=== PATIENT | male | born 1965 | race Caucasian/White ===

== ENCOUNTER 2023-04-01 08:52 | Day surgery (SDC) | payer OTHER, SELFPAY ==
[2023-04-01 09:16] VITALS: BP 163/88; PULSE 98; RESP 16; TEMP 37.7; O2SAT 98; BMI 34.5
[2023-04-01] MEDS: LACTATED RINGERS 1000 ML 1,000 ML 100 ML IV (09:45)
[2023-04-01] MEDS: SODIUM CHLORIDE 0.9 % (FLUSH) 10 ML SYRINGE IVF (09:45)
--- NOTE | 2023-04-01 10:13 | W.ANESCHARGE ---
Anesthesia Charges Start Date/Time Anesthesia Start Date: 04/01/23 Stop Date/Time Anesthesia Stop Date: 04/01/23
== END 2023-04-01 23:00 | disposition home or self-care (01) ==
LOC: OR 08:55
PROVIDERS: Visit Provider Surgery
DX: Z53.8 Procedure and treatment not carried out for other reasons (principal)
CPT/HCPCS: J0330; J1100; J1885; J2405; J2704; J3010; J7120

== ENCOUNTER 2025-04-02 20:58 | Outpatient (CLI) | payer OTHER, SELFPAY ==
--- OUTSIDE RECORDS SUMMARY | 2025-04-03 01:25 | XMS_ITS | Clinical Summary ---
Author Organization [facility] Address [address] , [address] [place] [address] Phone Care Team Providers Care Needle Grader Name Role Phone Manjeet Borrero Unavailable Unavailable Conditions or Problems Problem Name Problem Code Onset Date Status Entry Date Provider Comment Standard Description Annotate Hypervitamino sis B6 527305637 (SNOMED CT) 11/30 Active 11/30 Conrado Gomez MD Hypervitaminosis B6 Peripheral polyneuropath y [id number] (SNOMED CT) 11/04 Active 11/04 Conrado Gomez MD Peripheral nerve disease Numbness tingling bilat legs below knees [id number] (SNOMED CT) 11/04 Active 11/04 Conrado Gomez MD Paresthesia of lower extremity Medications Medication Instructions Start Date Stop Date Generic Name NDC Provider OXYCODONE HCL 15 MG TABS TAKE ONE TABLET BY MOUTH EVERY SIX HOURS NEEDED FOR PAIN oxycodone [id number] Conrado Gomez MD ZOLPIDEM TARTRATE 5 MG TABS TAKE ONE TABLET BY MOUTH ONE TIME DAILY AT BEDTIME NEEDED zolpidem 34996839010 Conrado Gomez MD CYCLOBENZAPRINE HCL 10 MG TABS TAKE ONE TABLET BY MOUTH THREE TIMES DAILY NEEDED FOR MUSCLE SPASM cyclobenzaprine [id number] Conrado Gomez MD LISINOPRIL 20 MG TABS TAKE ONE TABLET BY MOUTH TWICE DAILY lisinopril [id number] Conrado Gomez MD AMLODIPINE BESYLATE 10 MG TABS TAKE ONE TABLET BY MOUTH ONE TIME DAILY amlodipine [id number] Conrado Gomez MD MELOXICAM 15 MG TABS TAKE ONE TABLET BY MOUTH ONE TIME DAILY meloxicam 76071818892 Conrado Gomez MD ATORVASTATIN CALCIUM 20 MG TABS TAKE ONE TABLET BY MOUTH ONE TIME DAILY atorvastatin [id number] Conrado Gomez MD Medications Administered No information available. Allergies, Adverse Reactions, Alerts Allergy Name Reaction Description Start Date Severity Statu s Provider NO KNOWN DRUG ALLERGIES Mild Activ e Conrado Gomez MD Results Date Name Value Unit Range Flag Description Internal Other: Observation data from Authorization.pdf HIECONSENT Y Consent To Release information to the Health Information Exchange (VidientE) Office Visit: Office Visit n umb of toes scans - no records - [facility] ORALTOBACUSE Chews tobacco To bacco smoking status Office Visit: Office Visit f lup pt sched fax MEDS REVIEW Done Documenta tion of current medications (procedure) Plan of Care Type Date Detail Appointment 03:00 PM Samaria Turpin PA-C, [address], [address], [place], [address], Pending order Follow up YOJANA Pending order Follow up YOJANA Pending order Patient Instruct ions Pending order Follow up YOJANA in clinic or telemedicine Pending order Follow up YOJANA in clinic or telemedicine Pending order Hemoglobin A1C Pending order Immunofixation S delio Pending order Vitamin B6 (Pyri doxine) - fasting after midnight Pending order Patient Instruct ions Procedures Code Procedure Name Date Entry Date [facility]-[id number] Documentation of current medicatio ns ORDERS Patient Instructions [facility]-[id number] Documentation of current medicatio ns ORDERS Patient Instructions ORDERS Hemoglobin A1C ORDERS Immunofixation Serum ORDERS Vitamin B6 (Pyridoxi ne) - fasting after midnight Vital Signs No information available. Immunizations No information available. Advance Directives No information available.
--- OUTSIDE RECORDS SUMMARY | 2025-04-03 01:26 | XMS_ITS | Clinical Summary ---
Author Organization [facility] Address [address] [place] [address] Care Team Providers Care Captain Waiter Name Role Phone Jose Martin Marie MD Primary Care Provider Alyssia Merino RD Unavailable [phone] Crys Perez POLISHING MACHINE OPERATOR Unavailable [phone] Allergies No known active allergies Medications diazePAM (VALIUM) 5 mg tablet Take 10 mg by mouth one time if needed. 022 Active fluticasone (50 mcg per actuation) nasal solution (FLONASE)Indications:A llergy, sequela Inhale 2 Sprays to both nostrils once daily. 48 g 2 024 Active polyethylene glycoL (Miralax) 17 gram/scoop powderIndications:Cons tipation, acute Mix 1 scoop (17 g) in liquid then take by mouth once daily. 500 g 3 024 Active oxyCODONE (ROXICODONE) 15 mg immediate release tabletIndications:Lumb ar disc herniation,Chronic bilateral low back pain with sciatica, sciatica laterality unspecified Take 1 Tablet (15 mg) by mouth every 6 hours if needed for Pain. 120 Tablet 024 Active levalbuterol (XOPENEX HFA) 45 mcg/actuation inhalerIndications:Whe ezing Inhale 1-2 Puffs by mouth every 4 hours if needed for Wheezing. 15 g 025 Active atorvastatin (LIPITOR) 20 mg tabletIndications:Pure hypercholesterolemia Take 1 Tablet (20 mg) by mouth once daily. 90 Tablet 3 025 Active amLODIPine (NORVASC) 10 mg tabletIndications:Hype rtension, unspecified type Take 1 Tablet (10 mg) by mouth once daily. 90 Tablet 3 025 Active lisinopriL (PRINIVIL; ZESTRIL) 20 mg tabletIndications:Hype rtension, unspecified type Take 1 Tablet (20 mg) by mouth two times daily. 180 Tablet 3 025 Active traZODone (DESYREL) 50 mg tabletIndications:Slee p disturbance Take 1 Tablet (50 mg) by mouth at bedtime. 90 Tablet 1 025 Active oxyCODONE 15 mg tabletIndications:Lumb ar disc herniation,Chronic bilateral low back pain with sciatica, sciatica laterality unspecified,Controlled substance agreement signed Take 1 Tablet (15 mg) by mouth every 6 hours if needed for Pain. 120 Tablet 025 Active oxyCODONE 15 mg tabletIndications:Lumb ar disc herniation,Chronic bilateral low back pain with sciatica, sciatica laterality unspecified,Controlled substance agreement signed Take 1 Tablet (15 mg) by mouth every 6 hours if needed for Pain. 120 Tablet 025 04/28 Active oxyCODONE 15 mg tabletIndications:Lumb ar disc herniation,Chronic bilateral low back pain with sciatica, sciatica laterality unspecified,Controlled substance agreement signed Take 1 Tablet (15 mg) by mouth every 6 hours if needed for Pain. 120 Tablet 025 Active buPROPion 300 mg Extended-Release tabletIndications:Clas s 1 obesity with body mass index (BMI) of 33.0 to 33.9 in adult, unspecified obesity type, unspecified whether serious comorbidity present Take 1 Tablet (300 mg) by mouth once daily. Take after completing 14 days of 150mg dose. 90 Tablet 025 Active metFORMIN 500 mg Extended-Release tabletIndications:Clas s 1 obesity with body mass index (BMI) of 34.0 to 34.9 in adult, unspecified obesity type, unspecified whether serious comorbidity present,Insulin resistance,Prediabetes TAKE TWO TABLET BY MOUTH DAILY WITH MEALS 60 Tablet 1 025 Active metFORMIN 500 mg Extended-Release tabletIndications:Clas s 1 obesity with body mass index (BMI) of 34.0 to 34.9 in adult, unspecified obesity type, unspecified whether serious comorbidity present,Insulin resistance,Prediabetes TAKE TWO TABLET BY MOUTH DAILY WITH MEALS 60 Tablet 025 03/28 Discontinued Active Problems Problem Noted Date Diagnosed Date Sleep disturbance 11/23/2024 Lumbar disc herniation 11/23/2024 Hypertensive disease 11/23/2024 Peripheral sensory neuropathy 11/23/2024 Class 2 severe obesity with body mass index (BMI) of 35 to 39.9 with serious comorbidity 11/23/2024 Trigger ring finger of left hand 09/26/2024 Trigger finger of left thumb 06/30/2024 Right lateral epicondylitis 09/23/2023 S/P right thumb trigger finger release Trigger finger of right thumb 03/03/2023 S/P right carpal tunnel release 02/12/2023 S/P right cubital tunnel release 02/12/2023 Trigger thumb of right hand 02/12/2023 Abnormal urine 12/24/2022 Overview (12/24/2022): Abnormal Compliance urine test on 12/11/2022 due to use of otc Gummies with THC. Carpal tunnel syndrome of left wrist 10/16/2022 Bilateral hand pain 10/16/2022 Cubital tunnel syndrome, left 10/16/2022 Tachycardia 01/03/2019 Lipoma of back 01/03/2019 Essential hypertension 05/20/2018 Chronic bilateral low back pain with sciatica BMI 31.0-31.9,adult 04/17/2017 Controlled substance agreement signed and rox jamil 12/26/09 07/25/2014 Overview (11/02/2017): 11/02/17: ATV MECHANIC Query Ran and patient has filled controlled substances by 3 Cassie Wade providers and one other provider for Valium. Has used 2 different pharmacies. Query given to provider for review. Vivian Tubbs LPN ...........................11/02/2017 12:42 PM I have queried the [place] Prescription Monitoring Program 04/16/2017 for this patient for the preceding 6 months, reviewed the report provided by my proxy delegate. I have not identified any concerns. Holly Kim CMA (AAID) 04/16/2017...10:10 AM 05/11/16: ATV MECHANIC Query Ran and patient filling only meds from Jose Martin Marie MD but has used 2 different pharmacies. Vivian Tubbs LPN ...........................05/11/2016 4:30 PM History of kidney stones 09/09/2013 Family history of premature coronary artery dise ase 03/18/2012 Issue of repeat prescriptions 10/21/2010 Long-term current use of opiate analgesic 2008 Tobacco use disorder 10/16/2008 LOW BACK PAIN 08/16/2001 Overview (05/27/2012): CONTROLLED SUBSTANCE AGREEMENT 12/26/2009 120 tabs /month. Med adjusted 05/27/2012 HYPERCHOLESTEROLEMIA, PURE Resolved Problems Problem Noted Date Diagnosed Date Resolved Date Carpal tunnel syndrome of right wrist 10/16/2022 02/12/2023 Cubital tunnel syndrome, right 10/16/2022 02/12/2023 Routine adult health maintenance 09/14/2017 04/29/2018 Overview (09/14/2017): Colonoscopy 09/2017 hyperplastic polyp repeat in 10 years HTN (hypertension) 04/08/2016 08 8 Unspecified essential hypertension 06/08/2007 04/08/2016 ABNORMAL FINDINGS, ELEVATED BP W/O HTN 02/01/2003 04/29/2018 WARTS, VIRAL NOS 03/18/2012 ABNORMAL RESULT, FUNCTION STUDY, LIVER 03/18/2012 Encounters Date Type Department Care Team Description 03/26/2025 Refill [facility] [address] [place] [address] Crys Perez NP Refill Request (Metformin) 03/07/2025 1:00 PM CDT Office Visit [facility] [address] [place] [address] Keshawn Wade MD Sleep Consult 03/07/2025 Travel 02/28/2025 10:00 AM CDT Telemedicine [facility] [address] [place] [address] Crys Perez NP Weight ([facility] ) 02/28/2025 Travel 02/25/2025 Refill [facility] [address] [place] [address] Crys Perez NP Refill Request (Metformin) 02/14/2025 Refill [facility] [address] [place] [address] Crys Perez NP Refill Request (Bupropion) 02/08/2025 3:00 PM CDT Telemedicine [facility] [address] [place] [address] Medical Nutrition Therapy ([facility] telehealth) 02/03/2025 Travel 01/23/2025 Refill [facility] [address] [place] [address] Crys Perez NP Refill Request (Metformin) 01/16/2025 Refill [facility] [address] [place] [address] Crys Perez NP Refill Request (Bupropion) from Last 3 Months Immunizations Immunization Administration Dates Next Due Td (Age >=7 Years) 01/21/2003 Tdap 04/06/2014 Zoster (Shingrix-RZV, recombinant) 05/01/2022, Family History Medical History Relation Name Comments Good Health Father Heart Disease Mother CABG at 30, ca rotid dis. Relation Name Status Comments Father emphysema Mother Social History Tobacco Use Types Packs/Day Years Used Date Smoking Tobacco: Never Smokeless Tobacco: Current Chew Tobacco Cessation:Ready to Q uit: No; Counseling Given: Not Answered Comments:1 tin per day Alcohol Use Standard Drinks/Week Comments Yes 6 (1 standard drink = 0.6 oz pur e alcohol) less PHQ-2 Answer Date Recorded PHQ-2 TOTAL SCORE 0 11/22/2024 Social Connections Answer Date Recorded Do you often feel lonely or isolated from those around you? 0 10/27/2024 Financial Resource Strain Answer Date R ecorded Difficulty of Paying Living Expenses 3 10/27/2024 Difficulty of Paying Living Expenses Not on file 10/27/2024 Food Insecurity Answer Date Recorded Do you worry your food will run out before you are able to buy more? 1 10/27/2024 Transportation Needs Answer Date Record ed Does lack of transportation keep you from medica l appointments? 1 10/27/2024 Does lack of transportation keep you from work, meetings or getting things that you need? 1 10/27/2024 Housing Stability Answer Date Recorded What is your housing situation today? 1 10/27/2024 Utilities Answer Date Recorded Do you have trouble paying f or utilities (for example, heat, electricity, water, phone)? 1 10/27/2024 Comments Unknown Sex and Gender Information Value Date Recorded Sex Assigned at Female 11/23/2024 11:06 AM CHAR FILTER OPERATOR HELPER Legal Sex Male 5:26 AM CHAR FILTER OPERATOR HELPER Gender Identity Not on file Sexual Orientation Not on file Occupation Industry Job Start Date Job End Date [employer] Not on file Not on file Not on file Obstetrics History Last Filed Vital Signs Vital Sign Reading Time Taken Comments Blood Pressure 95/63 03/07/2025 12:57 PM CDT Pulse 80 03/07/2025 12:57 PM CDT Temperature 36.6 C (97.9 F) 10/27/2024 11:11 AM CHAR FILTER OPERATOR HELPER Respiratory Rate 16 10/12/2024 8:15 AM CHAR FILTER OPERATOR HELPER Oxygen Saturation 96% 03/07/2025 12:57 PM CDT Inhaled Oxygen Concentration - - Weight 96.8 kg (213 lb 6.4 oz) 03/07/2025 12:57 PM CDT Height 167.6 cm (5' 5.98) 03/07/2025 12:57 PM C DT Body Mass Index 34.46 03/07/2025 12:57 PM CDT Plan of Treatment Upcoming Encounters Date Type Department Care Team (Late st Contact Info) Description 05/03/2025 10:00 AM CDT Telemedicine [facility] [address] [place] [address] Crys Perez, JACINTA [address] [place] [address] 05/09/2025 4:00 PM CDT Telemedicine [facility] [address] [place] [phone] Alyssia Merino, RD [address] [place] [address] 06/05/2025 4:00 PM CDT Office Visit [facility] [address] [place] [address] Keshawn Wade MD [address] [place] [address] Health Maintenance Due Date Last Done Comments HIV for age 15-65 1982 Hepatitis B series for 19+ ( 1 of 3 - 19+ 3-dose series) 1986 Pap test for age 21-65 1988 Mammogram for age 45-75 2012 Pneumococcal series for age 50+ (1 of 1 - PCV) 2017 Tetanus booster 04/06/2024 04/06/2014, 01/21/2003 COVID-19 vaccine series ( - season) 2024 Influenza Vaccine (Season Ended) 2025 Depression screening for age 12+ 11/22/2025 11/22/2024, 09/14/2023, 01/09/2022, Additional history exists BMI (ht and wt on same day) for age 18+ 03/07/2026 03/07/2025, 02/28/2025, 02/08/2025, Additional history exists Colonoscopy through age 75 09/10/2027 09/10/2017, Lipids for age 45-75 10/23/2029 10/23/2024, 09/10/2023, 01/21/2022, Additional history exists Tdap Completed 04/06/2014 Hepatitis C screening for ag e 18-79 Completed 04/27/2017 Zoster (shingles) series for age 50+ Completed 05/01/2022, 01/09/2022 Procedures Procedure Name Priority Date/Time Associated Diagnosis Comments LIPID PANEL W REFLEX MEASURED LDL Routine 10/23/2024 10:20 AM CHAR FILTER OPERATOR HELPER Class 1 obesity with body mass index (BMI) of 34.0 to 34.9 in adult, unspecified obesity type, unspecified whether serious comorbidity present Screening for endocrine, nutritional, metabolic and immunity disorder COLONOSCOPY 09/10/2017 10:37 AM CHAR FILTER OPERATOR HELPER ANTI HCV Routine 04/27/2017 8:01 AM CDT Elevated liver enzymes from Last 3 Months or Most Recently Relevant to Health Maintenance Results * (ABNORMAL) LIPID PANEL W REFLEX MEASURED LDL (10/23/2024 10:20 AM CHAR FILTER OPERATOR HELPER) CHOLESTEROL, TOTAL 168 <200 mg/dL [facility] HDL CHOLESTEROL 42 > OR = 40 mg/dL [facility] TRIGLYCERIDES 143 <150 mg/dL [facility] LDL-CHOLESTEROL 102(H) mg/dL (calc) [facility] Comment: Reference range: <100 Desirable range <100 mg/dL for primary prevention; <70 mg/dL for patients with CHD or diabetic patients with > or = 2 CHD risk factors. LDL-C is now calculated using the Trevon-Clara calculation, which is a validated novel method providing better accuracy than the Friedewald equation in the estimation of LDL-C. Trevon MCKEON et al. DARYL. 2013;310(19): 3812-0610 (http://education.[employer]/faq/OIU780) CHOL/HDLC RATIO 4.0 <5.0 (calc) [facility] NON HDL CHOLESTEROL 126 <130 mg/dL (calc) [facility] Comment: For patients with diabetes plus 1 major ASCVD risk factor, treating to a non-HDL-C goal of <100 mg/dL (LDL-C of <70 mg/dL) is considered a therapeutic option. Blood BLOOD SPECIMEN / Unknown 10/23/2024 10:20 AM CHAR FILTER OPERATOR HELPER 10/23/2024 10:21 AM CHAR FILTER OPERATOR HELPER Crys Perez NP CHEMISTRY Final Result [facility] [address] [place] [address], [facility] [address] [place] [address] * COLONOSCOPY (09/10/2017 10:37 AM CHAR FILTER OPERATOR HELPER) 09/10/2017 10:3 7 AM CHAR FILTER OPERATOR HELPER Narrative Transcriptions Trevon Stallings MD - 09/10/2017 11:36 AM CST Patient Name: Myles Naqvi Procedure Date: 09/10/2017 Gender: Male Date of : 1965 Admit Type: Outpatient Procedure: Colonoscopy Proceduralist: Trevon Stallings MD , Oxana Fernandez (Nurse) Indications/Pre-Op Diagnosis: Screening for colorectal malignant neoplasm, This is the patient's first colonoscopy Medications: Fentanyl 100 micrograms IV, Midazolam 4 mgIV, The level of sedation administered wasmoderate Procedure Description: The patient had risks, benefits and alternatives explained to andgave informed consent. The patient had a stable cardiopulmonary status and judged an adequate candidate for conscious sedation. The [id number] was passed through the anus and advanced tothe cecum, identified by appendiceal orifice and ileocecal valve. The colonoscopy was performed without difficulty. The patient toleratedthe procedure well. The quality of the bowel preparation was good. The ileocecal valve, appendiceal orifice, and rectum were photographed. Complications: No immediate complications. Estimated Blood Loss & Specimen: Estimated blood loss: none. Specimen collected - Yes and sent to Laboratory Findings: The perianal and digital rectal examinations were normal. A 2 mm polyp was found in the rectum. The polyp was sessile. Thepolyp was removed with a cold biopsy forceps. Resection and retrieval were complete. The entire examined colon appeared normal on direct and retroflexion views. Impressions/Post-Op Diagnosis: - One 2 mm polyp in the rectum, removed with a cold biopsy forceps. Resected and retrieved. - The entire examined colon is normal on direct and retroflexionviews. Recommendation: - Patient has a contact number available for emergencies. The signsand symptoms of potential delayed complications were discussed with the patient. Return to normal activities tomorrow. Written discharge instructions were provided to the patient. - Resume previous diet. - Continue present medications. - Await pathology results. - Repeat colonoscopy is recommended. The colonoscopy date will be determined after pathology results from today's exam become available for review. Moderate Sedation: Moderate (conscious) sedation was administered by the endoscopy nurse and supervised by the endoscopist. The following parameters were monitored: oxygen saturation, heart rate, respiratory rate, blood pressure, adequacy of pulmonary ventilation and reponse to care. [facility] and nursing notes for moderate sedation details. Total physician intraservice time was 15 minutes. Trevon Stallings MD 09/10/2017 11:36:32 AM This report has been signed electronically. Note Initiated On: 09/10/2017 10:37 AM Procedure Code(s): --- Professional --- 18155, Colonoscopy, flexible; with biopsy, single or multiple Diagnosis Code(s): --- Professional --- Z12.11, Encounter for screening formalignant neoplasm of colon K62.1, Rectal polyp CPT copyright 2016 [employer]. All rights reserved. The codes documented in this report are preliminary and upon water softener service supervisor reviewmay be revised to meet current compliance requirements. Scope In: 11:16:56 AM Scope Withdrawal Time 0 hours 10 minutes 44 seconds Scope Out: 11:30:35 AM us Trevon Stallings MD PROCEDURE ORD Final Res ult * ANTI HCV (04/27/2017 8:01 AM CDT) HEPATITIS C ANTIBODY Non-Reacti ve Non-Reacti ve 04/30/2017 10:17 AM CDT [facility] Blood BLOOD SPECIMEN / Unknown Venipuncture / Unknown 04/27/2017 8:01 AM CDT 04/27/2017 8:01 AM CDT Narrative [facility] - 04/30/2017 10:17 AM CDT Antibodies to HCV not detected; does not exclude the possibility of exposure to HCV. us Jose Martin Marie MD SEND OUTS Final R esult [facility] [address] [place] [address], [place] from Last 3 Months or Most Recently Relevant to Health Maintenance Insurance [place] [id number] Advance Directives * Full Code (Latest Code Status on File) Date Activated Date Inactivated Comments 10/12/2024 6:28 AM 10/12/2024 10:36 AM Question Answer Comments Code Status Discussion: Unable to Assess Preferences, Provider to review later * Full Code Date Activated Date Inactivated Comments 05/19/2023 6:31 AM 05/19/2023 10:55 AM Question Answer Comments Code Status Discussion: Unable to Assess Preferences, Provider to review later * Full Code Date Activated Date Inactivated Comments 03/31/2023 9:13 AM 03/31/2023 4:57 PM Question Answer Comments Code Status Discussion: Reviewed Preferences * Full Code Date Activated Date Inactivated Comments 12/30/2022 8:55 AM 12/30/2022 4:16 PM Question Answer Comments Code Status Discussion: Reviewed Preferences Care Teams Captain Waiter Relationship Specialty Start Date End Date Jose Martin Marie MD [address] [place] [address] PCP - General Family Practice 04/06/[address] [facility] [address] [place] [address] Labor Employment Associate 09/27/24 Crys Perez, JACINTA [address] [place] [address] Consulting Physician Nurse Practitioner - Family 09/25/24
== END 2025-04-02 20:59 | disposition home or self-care (01) ==
LOC: SLEEP 20:59
PROVIDERS: Visit Provider Internal Medicine
DX: G47.33 Obstructive sleep apnea (adult) (pediatric) (principal); R09.02 Hypoxemia; G47.31 Primary central sleep apnea
CPT/HCPCS: 95811